=== PATIENT | male | born 1935 | race Caucasian/White ===

== ENCOUNTER 2020-01-27 16:14 | Emergency (ER) | payer BC, OTHER ==
[~2020-01-27] VITALS: Ht 172.7 cm; Wt 90.7 kg
[2020-01-27 16:29] VITALS: BP 126/66
[2020-01-27 18:36] LABS: Basophils # (auto) 0 10 ^3/uL (0-0.2); Basophils % (auto) 0.5 % (0.0-2.0); Eosinophils # (auto) 0.1 10 ^3/uL (0-0.8); Eosinophils % (auto) 1.4 % (0.0-7.0); Hematocrit 45.1 % (41.0-53.0); Hemoglobin 15.2 g/dL (13.5-17.5); Lymphocytes # (auto) 1.9 10 ^3/uL (0.4-5.4); Lymphocytes % (auto) 22.4 % (10.0-50.0); Mean Corpuscular Hemoglobin 29.5 pg (28.0-32.0); Mean Corpuscular Hgb Conc. 33.8 g/dL (32.0-36.0); Mean Corpuscular Volume 87.3 fL (80.0-100.0); Monocytes # (auto) 0.9 10 ^3/uL (0-1.3); Monocytes % (auto) 10.2 % (0.0-12.0); Neutrophils # (auto) 5.6 10 ^3/uL (1.6-8.6); Neutrophils % (auto) 65.5 % (37.0-80.0); Nucleated Red Blood Cells % 0.1 %; Platelet Count (auto) 235 10^3/uL (140-450); Red Blood Cells 5.17 10^6/uL (4.5-5.90); Red Cell Distribution Width 13.3 % (11.8-14.3); White Blood Cell 8.5 10^3/uL (4.4-10.8)
[2020-01-27 18:51] LABS: INR 1.04 (0.9-1.15); Partial Thromboplastin Time 24.9 sec (23.64-32.05)
[2020-01-27 18:54] LABS: Alanine Aminotransferase 32 U/L (16-61); Albumin 3.2 g/dL (3.4-5.0); Anion Gap 5 (5-15); Aspartate Aminotransferase 19 U/L (15-37); BUN/Creatinine Ratio 20.8; Blood Urea Nitrogen 22 mg/dL (7-18); Calcium 8.8 mg/dL (8.5-10.1); Carbon Dioxide 29 mmol/L (21-32); Chloride 104 mmol/L (98-107); GFR African American 85 mL/min; GFR Non-African American 70 mL/min; Glucose 92 mg/dL (74-106); Potassium 3.8 mmol/L (3.5-5.1); Sodium 138 mmol/L (136-145)
[2020-01-27 18:59] LABS: Alkaline Phosphatase 95 U/L (45-117); Bilirubin, Total 0.6 mg/dL (0.2-1.0); Total Protein 7.2 g/dL (6.4-8.2)
== END 2020-01-27 20:20 | disposition left against medical advice (07) ==
LOC: ER 16:14
DX: R07.89 Other chest pain (principal); Z53.21 Procedure and treatment not carried out due to patient leaving prior to being seen by health care provider
CPT/HCPCS: 36415; 80053; 83880; 84484; 85025; 85610; 85730; 93005

== ENCOUNTER 2020-03-23 10:52 | Inpatient (IN) | payer BC, OTHER ==
[~2020-03-23] VITALS: Ht 172.7 cm; Wt 97.0 kg
[2020-03-23 11:48] LABS: Basophils # (auto) 0 10 ^3/uL (0-0.2); Basophils % (auto) 0.2 % (0.0-2.0); Eosinophils # (auto) 0 10 ^3/uL (0-0.8); Hematocrit 44.7 % (41.0-53.0); Hemoglobin 14.9 g/dL (13.5-17.5); Lymphocytes # (auto) 0.6 10 ^3/uL (0.4-5.4); Lymphocytes % (auto) 3.7 % (10.0-50.0); Mean Corpuscular Hemoglobin 29.3 pg (28.0-32.0); Mean Corpuscular Hgb Conc. 33.4 g/dL (32.0-36.0); Mean Corpuscular Volume 87.7 fL (80.0-100.0); Monocytes # (auto) 0.8 10 ^3/uL (0-1.3); Monocytes % (auto) 5.1 % (0.0-12.0); Neutrophils # (auto) 14.6 10 ^3/uL (1.6-8.6); Nucleated Red Blood Cells % 0.1 %; Platelet Count (auto) 170 10^3/uL (140-450); Red Cell Distribution Width 14.2 % (11.8-14.3)
[2020-03-23 12:28] LABS: Albumin 2.9 g/dL (3.4-5.0); Anion Gap 8 (5-15); Blood Urea Nitrogen 23 mg/dL (7-18); Calcium 8.5 mg/dL (8.5-10.1); Carbon Dioxide 23 mmol/L (21-32); Chloride 102 mmol/L (98-107); Glucose 141 mg/dL (74-106); Potassium 3.7 mmol/L (3.5-5.1); Sodium 133 mmol/L (136-145)
[2020-03-23 12:35] LABS: Alanine Aminotransferase 31 U/L (16-61); Alkaline Phosphatase 77 U/L (45-117); Aspartate Aminotransferase 21 U/L (15-37); BUN/Creatinine Ratio 26.1; Bilirubin, Total 1.7 mg/dL (0.2-1.0); GFR African American 106 mL/min; GFR Non-African American 87 mL/min; Total Protein 7.2 g/dL (6.4-8.2)
[2020-03-23] MEDS ORDERED: SODIUM CHLORIDE 0.9% 1,000 ML IVB ONE (12:45)
[2020-03-23] MEDS ORDERED: ZINC SULFATE 220mg CAP or TAB PO ONE (12:45)
[2020-03-23] MEDS ORDERED: DOXYCYCLINE 100MG/250ML 250 ML IV ONE (12:45)
[2020-03-23] MEDS ORDERED: ASCORBIC ACID 500 MG TAB PO ONE (12:45)
[2020-03-23 13:47] LABS: INR 1.08 (0.9-1.15); Partial Thromboplastin Time 28.3 sec (23.0-31.2)
[2020-03-23 13:52] LABS: Lactic Acid w/Reflex 2.4 mmol/L (0.4-2.0)
[2020-03-23] MEDS ORDERED: PIPERACILLIN-TAZOB 3.375GM 100 ML IV ONE (16:45)
[2020-03-23] MEDS ORDERED: ACETAMINOPHEN 325 MG TAB PO ONE (18:45)
[2020-03-23] MEDS ORDERED: ALBUTEROL SULF HFA 90MCG INH 200DOSE IN SCH (22:00)
[2020-03-23] MEDS: methylPREDNISolone SOD SUCC 40 MG/ML VL IV SCH (22:26)
[2020-03-24 00:06] LABS: Urine Bacteria FEW /hpf (None Seen); Urine Blood Negative /uL (Negative); Urine Mucus FEW (None Seen); Urine Specific Gravity 1.019 (1.001-1.035); Urine WBC 50 /hpf (0 - 3)
[2020-03-24 02:15] VITALS: BP 125/68
--- NOTE | 2020-03-24 02:15 | NUR ---
Patient Brought to Unit Via Bed from ER w/ belongings Patient AOx4 w/ no complaints of pain. No s/s distress and no SOB. Patient bed locked in lowest position. Samuel present w/strawberry colored urine. Discussed POC with patient. Will continue to monitor.
[2020-03-24 02:24] VITALS: BP 125/68
--- NOTE | 2020-03-24 03:00 | NUR ---
Critical Lab Value Blood cultures show gram positive rods. Enid diaz. Addendum: 03/24/20 at 0305 by SABA PERDOMO RN RN Dr. Jarquin notified and called back. No new orders at this time.
--- NOTE | 2020-03-24 03:05 | NUR ---
Report given To Sampson RODRIGUES Patient AO4, no complaints of pain and no SOB.
[2020-03-24] MEDS ORDERED: METO-5 PO (03:25)
[2020-03-24] MEDS ORDERED: CLOP75TA28 PO (03:25)
[2020-03-24] MEDS ORDERED: FAMO20TA10 PO (03:25)
[2020-03-24] MEDS ORDERED: LOSA25TA38 PO (03:25)
[2020-03-24] MEDS ORDERED: ERGO1CAP23 PO (03:25)
[2020-03-24] MEDS ORDERED: AMLO10TA13 PO (03:25)
[2020-03-24] MEDS ORDERED: FINA5TAB4 PO (03:25)
[2020-03-24] MEDS ORDERED: FLUT0.05 NAS (03:25)
[2020-03-24] MEDS ORDERED: LEVO100T8 PO (03:25)
[2020-03-24] MEDS ORDERED: ASPI-543 PO (03:25)
[2020-03-24] MEDS ORDERED: ATOR20TA50 PO (03:25)
--- NOTE | 2020-03-24 07:20 | NUR ---
Opening Shift Note: Assumed care of patient, awake and alert. No S/S of distress/SOB or pain. Bed in lowest locked position, side rails up x 2, call light within reach. Patient instructed on POC and to call for assist PRN, will continue to monitor for changes Q1hr and PRN.
[2020-03-24 08:00] VITALS: BP 142/75
[2020-03-24] MEDS: methylPREDNISolone SOD SUCC 40 MG/ML VL IV SCH (09:54)
[2020-03-24] MEDS ORDERED: ACETAMINOPHEN 500 MG TAB PO PRN (11:00)
[2020-03-24] MEDS ORDERED: ONDANSETRON HCL 4 MG/2 ML VIAL IV PRN (11:00)
[2020-03-24 12:00] VITALS: BP 142/72
--- NOTE | 2020-03-24 15:00 | NUR ---
PT REPORTS THAT HE HAS ALREADY BEEN UP WITH NURSING. ATTEMPT P.T. TOMORROW.
--- NOTE | 2020-03-24 15:47 | NUR ---
PATIENT VOIDED AFTER WILSON WAS REMOVED.
--- NOTE | 2020-03-24 16:15 | NUR ---
URINE CULTURE COLLECTED AND SENT TO LAB.
--- NOTE | 2020-03-24 16:35 | NUR ---
PER MD ORDER, WILSON CATHETER REMOVED.
[2020-03-24 17:03] VITALS: BP 148/88
[2020-03-24] MEDS ORDERED: TAMSULOSIN HYDROCHLORIDE 0.4 MG CAP PO SCH (18:00)
--- NOTE | 2020-03-24 18:46 | NUR ---
CLOSING NOTE: Patient resting in bed. No S/S of distress at this time. Care endorsed.
[2020-03-24] MEDS: FAMOTIDINE 20 MG TAB PO SCH (21:27)
[2020-03-24] MEDS: CIPROFLOXACIN 400MG/200ML 200 ML IV SCH (21:27)
[2020-03-24 22:00] VITALS: BP 150/81
[2020-03-25 05:14] VITALS: BP 139/65
[2020-03-25 05:54] LABS: Basophils # (auto) 0 10 ^3/uL (0-0.2); Basophils % (auto) 0.1 % (0.0-2.0); Eosinophils # (auto) 0 10 ^3/uL (0-0.8); Hematocrit 44.5 % (41.0-53.0); Hemoglobin 15.2 g/dL (13.5-17.5); Lymphocytes # (auto) 1.2 10 ^3/uL (0.4-5.4); Lymphocytes % (auto) 9.4 % (10.0-50.0); Mean Corpuscular Hgb Conc. 34.1 g/dL (32.0-36.0); Monocytes % (auto) 7.9 % (0.0-12.0); Neutrophils # (auto) 10.3 10 ^3/uL (1.6-8.6); Neutrophils % (auto) 82.6 % (37.0-80.0); Nucleated Red Blood Cells % 0.1 %; Platelet Count (auto) 194 10^3/uL (140-450); Red Blood Cells 5.06 10^6/uL (4.5-5.90); Red Cell Distribution Width 14.1 % (11.8-14.3); White Blood Cell 12.5 10^3/uL (4.4-10.8)
[2020-03-25] MEDS ORDERED: LEVOTHYROXINE SODIUM 100 MCG TAB PO SCH (07:00)
--- NOTE | 2020-03-25 08:00 | NUR ---
Opening Shift Note Assumed care of patient, awake, alert lying supine watching television. No S/S of distress/SOB or pain. Bilateral lower lobes diminished upon auscultation, no edema present. Instructed on POC and to call for assist PRN. Patient verbalized understanding. Will continue to monitor for changes Q1hr and PRN.
[2020-03-25 09:00] VITALS: BP 161/79
--- NOTE | 2020-03-25 09:43 | NUR ---
PHYSICAL THERAPY PHYSICAL THERAPY IN TO SEE PATIENT. PATIENT AMBULATED THROUGHOUT UNIT WITH CANE. WILL CONTINUE TO MONITOR.
[2020-03-25] MEDS ORDERED: METOPROLOL TARTRATE 50 MG TAB PO SCH (10:00)
[2020-03-25] MEDS ORDERED: CLOPIDOGREL BISULFATE 75 MG TAB PO SCH (10:00)
[2020-03-25] MEDS ORDERED: ASPirin-EC 81 mg tab PO SCH (10:00)
[2020-03-25] MEDS ORDERED: ATORVASTATIN 20 MG TAB PO SCH (10:00)
[2020-03-25] MEDS ORDERED: LOSARTAN POTASSIUM 25 MG TAB PO SCH (10:00)
[2020-03-25] MEDS ORDERED: FINASTERIDE 5 MG TAB PO SCH (10:00)
[2020-03-25] MEDS: CIPROFLOXACIN 400MG/200ML 200 ML IV SCH (10:27)
[2020-03-25] MEDS: FAMOTIDINE 20 MG TAB PO SCH (10:30)
[2020-03-25 13:00] VITALS: BP 154/83
[2020-03-25] MEDS ORDERED: cefTRIAXone 1GM/50ML D5W 50 ML IV ONE (14:00)
[2020-03-25] MEDS ORDERED: CEPH-37 PO (14:18)
[2020-03-25] MEDS ORDERED: PROBCAP9 OR (14:18)
[2020-03-25 14:55] VITALS: BP 150/77
--- NOTE | 2020-03-25 17:25 | NUR ---
Discharge instructions given as ordered. Encourage to follow up with PMD as instructed. All questions and concerns addressed. Patient verbalized understanding. Medication reconciliation form completed and copy given to patient. IV removed with catheter intact, pressure dressing applied. Telemetry unit returned to ICU. Patient taken to vehicle via wheelchair with all personal belongings, accompanied by staff. No distress noted at time of departure.
--- NOTE | 2020-03-26 09:05 | NUR ---
Assessment Patient is an 84-year old male who is alert and oriented. Prior to admission patient lived with his Hayde and functioned independently. Per patient he can care for his own ADL's. Patient has a walker and cane for home use. Per patient he will return home to his prior living arrangements post discharge and family will transport him home. Advised patient there is a social service consult for home health safety evaluation. Informed patient he has a right to participate in all discharge planning. Patient verbalized understanding and agreed to discharge plan. Faxed clinical information to [facility] and [facility]. Per Laura with [facility] patient has been accepted and service to start within 24-48hrs upon d/c day. Addendum: 03/26/20 at 0906 by SHON CAVAZOS Amended: Links added.
== END 2020-03-25 17:25 | disposition home health service (06) | DRG 189 ==
LOC: ER 10:52 → EDBD 10:52 → TELE 10:53 → TELE-WESTW 23:52
PROVIDERS: ADMIT Emergency Medicine; ATTEND Hospitalist
DX: J96.01 Acute respiratory failure with hypoxia (principal); N39.0 Urinary tract infection, site not specified; N40.0 Benign prostatic hyperplasia without lower urinary tract symptoms; E78.5 Hyperlipidemia, unspecified; I25.10 Atherosclerotic heart disease of native coronary artery without angina pectoris; Z20.828 Contact with and (suspected) exposure to other viral communicable diseases; Z87.440 Personal history of urinary (tract) infections; Z82.49 Family history of ischemic heart disease and other diseases of the circulatory system; Z83.3 Family history of diabetes mellitus; Z79.899 Other long term (current) drug therapy; I10 Essential (primary) hypertension
CPT/HCPCS: 36415; 71045; 80053; 81001; 83605; 83735; 83880; 84484; 85025; 85610; 85730; 87040; 87077; 87086; 87088; 87186; 87426; 87449; 93005; 97163; G0378; J0696; J2543; J3490

== ENCOUNTER 2021-01-13 18:45 | Emergency (ER) | payer BC, OTHER ==
[~2021-01-13] VITALS: Ht 172.7 cm; Wt 97.5 kg
[~2021-01-13 18:45] MED LIST: AMLO-496 PO; ASPI-543 PO; ATOR20TA50 PO; CEPH-37 PO; CLOP75TA28 PO; ERGO1CAP23 PO; FAMO20TA10 PO; FINA5TAB4 PO; FLUT0.05 NAS; LEVO100T8 PO; LOSA25TA38 PO; METO1TAB77 PO; PROBCAP9 OR
[2021-01-13 20:44] LABS: Basophils # (auto) 0 10 ^3/uL (0-0.2); Basophils % (auto) 0.5 % (0.0-2.0); Eosinophils # (auto) 0.2 10 ^3/uL (0-0.8); Eosinophils % (auto) 3.7 % (0.0-7.0); Hemoglobin 14.9 g/dL (13.5-17.5); Lymphocytes # (auto) 1.9 10 ^3/uL (0.4-5.4); Lymphocytes % (auto) 31.3 % (10.0-50.0); Mean Corpuscular Hemoglobin 30.7 pg (28.0-32.0); Mean Corpuscular Hgb Conc. 35.5 g/dL (32.0-36.0); Mean Corpuscular Volume 86.4 fL (80.0-100.0); Monocytes # (auto) 0.6 10 ^3/uL (0-1.3); Monocytes % (auto) 9.6 % (0.0-12.0); Neutrophils # (auto) 3.3 10 ^3/uL (1.6-8.6); Neutrophils % (auto) 54.9 % (37.0-80.0); Nucleated Red Blood Cells % 0.1 %; Platelet Count (auto) 205 10^3/uL (140-450); Red Blood Cells 4.86 10^6/uL (4.5-5.90); Red Cell Distribution Width 13.9 % (11.8-14.3); White Blood Cell 5.9 10^3/uL (4.4-10.8)
[2021-01-13 21:00] LABS: Albumin 3.3 g/dL (3.4-5.0); Anion Gap 6 (5-15); Blood Urea Nitrogen 12 mg/dL (7-18); Calcium 8.2 mg/dL (8.5-10.1); Carbon Dioxide 27 mmol/L (21-32); Chloride 105 mmol/L (98-107); Glucose 102 mg/dL (74-106); Potassium 3.8 mmol/L (3.5-5.1); Sodium 138 mmol/L (136-145)
[2021-01-13 21:08] LABS: Alanine Aminotransferase 40 U/L (16-61); Alkaline Phosphatase 104 U/L (45-117); Aspartate Aminotransferase 23 U/L (15-37); BUN/Creatinine Ratio 14.6; Bilirubin, Total 0.4 mg/dL (0.2-1.0); GFR African American 114 mL/min; GFR Non-African American 94 mL/min
[2021-01-13 21:50] VITALS: BP 153/75
== END 2021-01-13 22:00 | disposition home or self-care (01) ==
LOC: EDBD 18:45 → ER 18:46
DX: I10 Essential (primary) hypertension (principal); E78.5 Hyperlipidemia, unspecified; I25.2 Old myocardial infarction
CPT/HCPCS: 36415; 71045; 80053; 84484; 85025; 85049; 93005

== ENCOUNTER 2021-04-09 20:21 | Emergency (ER) | payer BC, OTHER ==
[~2021-04-09] VITALS: Ht 182.9 cm; Wt 97.5 kg
[2021-04-09 21:06] LABS: Basophils # (auto) 0 10 ^3/uL (0-0.2); Basophils % (auto) 0.4 % (0.0-2.0); Eosinophils # (auto) 0.2 10 ^3/uL (0-0.8); Eosinophils % (auto) 2.7 % (0.0-7.0); Hematocrit 42.7 % (41.0-53.0); Hemoglobin 14.6 g/dL (13.5-17.5); Lymphocytes # (auto) 2.1 10 ^3/uL (0.4-5.4); Lymphocytes % (auto) 32.3 % (10.0-50.0); Mean Corpuscular Hemoglobin 29.9 pg (28.0-32.0); Mean Corpuscular Hgb Conc. 34.1 g/dL (32.0-36.0); Mean Corpuscular Volume 87.5 fL (80.0-100.0); Monocytes # (auto) 0.7 10 ^3/uL (0-1.3); Monocytes % (auto) 11.1 % (0.0-12.0); Neutrophils # (auto) 3.4 10 ^3/uL (1.6-8.6); Neutrophils % (auto) 53.5 % (37.0-80.0); Nucleated Red Blood Cells % 0.1 %; Red Blood Cells 4.88 10^6/uL (4.5-5.90); Red Cell Distribution Width 13.6 % (11.8-14.3); White Blood Cell 6.4 10^3/uL (4.4-10.8)
[2021-04-09 21:38] LABS: Alanine Aminotransferase 42 U/L (16-61); Albumin 3.1 g/dL (3.4-5.0); Anion Gap 8 (5-15); Aspartate Aminotransferase 17 U/L (15-37); BUN/Creatinine Ratio 16.3; Blood Urea Nitrogen 13 mg/dL (7-18); Calcium 8.3 mg/dL (8.5-10.1); Carbon Dioxide 25 mmol/L (21-32); Chloride 106 mmol/L (98-107); GFR African American 118 mL/min; GFR Non-African American 97 mL/min; Glucose 115 mg/dL (74-106); Potassium 3.7 mmol/L (3.5-5.1); Sodium 139 mmol/L (136-145)
[2021-04-09 21:43] LABS: Alkaline Phosphatase 107 U/L (45-117); Bilirubin, Total 0.4 mg/dL (0.2-1.0); Total Protein 6.9 g/dL (6.4-8.2)
[2021-04-10 00:38] LABS: Urine Bacteria NONE SEEN /hpf (None Seen); Urine Blood Negative /uL (Negative); Urine WBC <1 /hpf (0 - 3)
[2021-04-10 02:52] VITALS: BP 170/90
== END 2021-04-10 03:14 | disposition home or self-care (01) ==
LOC: EDBD 20:21 → ER 20:25
DX: R42 Dizziness and giddiness (principal); I10 Essential (primary) hypertension; I25.2 Old myocardial infarction; E78.5 Hyperlipidemia, unspecified; Z86.73 Personal history of transient ischemic attack (TIA), and cerebral infarction without residual deficits; Z90.49 Acquired absence of other specified parts of digestive tract; Z98.61 Coronary angioplasty status; Z79.899 Other long term (current) drug therapy
CPT/HCPCS: 36415; 70450; 71045; 80053; 81001; 83880; 84484; 85025; 93005

== ENCOUNTER 2021-08-11 06:03 | Inpatient (IN) | payer BC, OTHER ==
[~2021-08-11] VITALS: Ht 165.1 cm; Wt 112.9 kg
[2021-08-11 07:17] LABS: Basophils # (auto) 0 10 ^3/uL (0-0.2); Basophils % (auto) 0.4 % (0.0-2.0); Eosinophils # (auto) 0.1 10 ^3/uL (0-0.8); Eosinophils % (auto) 1.8 % (0.0-7.0); Hematocrit 42.6 % (41.0-53.0); Hemoglobin 14.7 g/dL (13.5-17.5); Lymphocytes # (auto) 1.3 10 ^3/uL (0.4-5.4); Lymphocytes % (auto) 21.3 % (10.0-50.0); Mean Corpuscular Hgb Conc. 34.4 g/dL (32.0-36.0); Monocytes # (auto) 0.5 10 ^3/uL (0-1.3); Monocytes % (auto) 8.4 % (0.0-12.0); Neutrophils # (auto) 4.2 10 ^3/uL (1.6-8.6); Neutrophils % (auto) 68.1 % (37.0-80.0); Red Cell Distribution Width 13.8 % (11.8-14.3); White Blood Cell 6.2 10^3/uL (4.4-10.8)
[2021-08-11] MEDS ORDERED: ONDANSETRON HCL 4 MG/2 ML VIAL IV ONE (07:30)
[2021-08-11] MEDS ORDERED: MORPHINE SULFATE 4 MG/ML SYR/VIAL IV ONE (07:30)
[2021-08-11 08:05] LABS: Potassium 4.1 mmol/L (3.5-5.1)
[2021-08-11 08:16] LABS: Albumin 3.4 g/dL (3.4-5.0); BUN/Creatinine Ratio 19.3; Bilirubin, Total 0.5 mg/dL (0.2-1.0); Calcium 8.4 mg/dL (8.5-10.1); Total Protein 7.2 g/dL (6.4-8.2)
[2021-08-11] MEDS ORDERED: SODIUM CHLORIDE 0.9% 1,000 ML IV ONE (09:15)
[2021-08-11] MEDS ORDERED: HYDROmorphone HCL 2 MG/ML VL IV ONE (09:15)
[2021-08-11] MEDS ORDERED: IOHEXOL 350 MG/ML 100ML IJ ONE (09:44)
[2021-08-11] MEDS ORDERED: NITROGLYCERIN 0.4 MG SL TAB SL PRN (10:45)
[2021-08-11] MEDS ORDERED: MORPHINE SULFATE INJECTION 2 MG/ML SYRG IV PRN (10:45)
[2021-08-11 12:38] VITALS: BP 137/77
[2021-08-11 13:00] VITALS: BP 137/77
[2021-08-11 18:00] VITALS: BP 149/72
[2021-08-11] MEDS: RANOLAZINE ER 500 MG TAB PO SCH (21:15)
[2021-08-11] MEDS: FAMOTIDINE 20 MG TAB PO SCH (21:15)
[2021-08-11] MEDS ORDERED: ATORVASTATIN 20 MG TAB PO SCH (22:00)
[2021-08-12] MEDS ORDERED: LEVOTHYROXINE SODIUM 100 MCG TAB PO SCH (07:00)
[2021-08-12 09:00] VITALS: BP 159/91
[2021-08-12] MEDS: FAMOTIDINE 20 MG TAB PO SCH (09:14)
[2021-08-12] MEDS: RANOLAZINE ER 500 MG TAB PO SCH (09:15)
[2021-08-12] MEDS ORDERED: ASPirin-EC 81 mg tab PO SCH (10:00)
[2021-08-12] MEDS ORDERED: LOSARTAN POTASSIUM 25 MG TAB PO SCH (10:00)
[2021-08-12] MEDS ORDERED: METOPROLOL TARTRATE 50 MG TAB PO SCH (10:00)
[2021-08-12] MEDS ORDERED: CLOPIDOGREL BISULFATE 75 MG TAB PO SCH (10:00)
[2021-08-12] MEDS ORDERED: FINASTERIDE 5 MG TAB PO SCH (10:00)
[2021-08-12 13:00] VITALS: BP 154/80
[2021-08-12] MEDS ORDERED: RANO500T PO (14:46)
[2021-08-12 15:11] VITALS: BP 154/80
== END 2021-08-12 17:34 | disposition home or self-care (01) | DRG 303 ==
LOC: ER 06:03 → EDBD 06:03 → TELE 10:35 → TELE-WESTW 12:03
PROVIDERS: ADMIT Hospitalist; ATTEND Hospitalist
DX: I25.10 Atherosclerotic heart disease of native coronary artery without angina pectoris (principal); Z68.41 Body mass index [BMI] 40.0-44.9, adult; I11.9 Hypertensive heart disease without heart failure; Z77.090 Contact with and (suspected) exposure to asbestos; E66.9 Obesity, unspecified; E78.5 Hyperlipidemia, unspecified; Z20.822 Contact with and (suspected) exposure to COVID-19; Z79.899 Other long term (current) drug therapy; Z83.3 Family history of diabetes mellitus; Z82.49 Family history of ischemic heart disease and other diseases of the circulatory system; Z90.49 Acquired absence of other specified parts of digestive tract; Z95.5 Presence of coronary angioplasty implant and graft
CPT/HCPCS: 36415; 71045; 71275; 80053; 83880; 84484; 85025; 87426; 93005; 93306; 96361; 96374; 96375; G0378; J2405

== ENCOUNTER 2022-04-18 08:48 | Emergency (ER) | payer BC, OTHER ==
[~2022-04-18] VITALS: Ht 172.7 cm; Wt 105.2 kg
[~2022-04-18 08:48] MED LIST changes: -AMLO-496 PO; -CEPH-37 PO; +RANO500T PO
[2022-04-18 09:41] LABS: Albumin 3.6 g/dL (3.4-5.0); Calcium 9.1 mg/dL (8.5-10.1); Potassium 4.7 mmol/L (3.5-5.1)
[2022-04-18 09:44] LABS: Basophils # (auto) 0.1 10 ^3/uL (0-0.2); Basophils % (auto) 0.6 % (0.0-2.0); Eosinophils # (auto) 0.5 10 ^3/uL (0-0.8); Eosinophils % (auto) 4.7 % (0.0-7.0); Hemoglobin 14.8 g/dL (13.5-17.5); Lymphocytes # (auto) 1.9 10 ^3/uL (0.4-5.4); Lymphocytes % (auto) 19.3 % (10.0-50.0); Mean Corpuscular Hemoglobin 30.1 pg (28.0-32.0); Mean Corpuscular Hgb Conc. 34.4 g/dL (32.0-36.0); Mean Corpuscular Volume 87.4 fL (80.0-100.0); Neutrophils # (auto) 6.4 10 ^3/uL (1.6-8.6); Neutrophils % (auto) 65.4 % (37.0-80.0); Nucleated Red Blood Cells % 0.1 %; Red Blood Cells 4.91 10^6/uL (4.5-5.90); Red Cell Distribution Width 13.8 % (11.8-14.3); White Blood Cell 9.7 10^3/uL (4.4-10.8)
[2022-04-18 09:45] LABS: BUN/Creatinine Ratio 23.5; Bilirubin, Total 0.6 mg/dL (0.2-1.0); Total Protein 7.4 g/dL (6.4-8.2)
[2022-04-18 09:51] VITALS: BP 133/69
[2022-04-18 09:54] LABS: Urine Bacteria NONE SEEN /hpf (None Seen); Urine Blood Negative /uL (Negative); Urine Specific Gravity 1.005 (1.001-1.035); Urine WBC 1 /hpf (0 - 3)
[2022-04-18] MEDS ORDERED: TAM04C PO (11:50)
== END 2022-04-18 11:49 | disposition home or self-care (01) ==
LOC: ER 08:48
DX: N40.1 Benign prostatic hyperplasia with lower urinary tract symptoms (principal); R33.8 Other retention of urine; I10 Essential (primary) hypertension; I25.2 Old myocardial infarction; Z86.73 Personal history of transient ischemic attack (TIA), and cerebral infarction without residual deficits; Z90.49 Acquired absence of other specified parts of digestive tract; Z98.61 Coronary angioplasty status
CPT/HCPCS: 36415; 51702; 80053; 81001; 85025; 93005

== ENCOUNTER 2022-04-18 16:14 | Emergency (ER) | payer BC ==
[~2022-04-18] VITALS: Ht 172.7 cm; Wt 105.8 kg
[~2022-04-18 16:14] MED LIST changes: +TAM04C PO
[2022-04-18 18:44] LABS: Basophils # (auto) 0.1 10 ^3/uL (0-0.2); Basophils % (auto) 0.5 % (0.0-2.0); Eosinophils # (auto) 0.4 10 ^3/uL (0-0.8); Hematocrit 43.4 % (41.0-53.0); Hemoglobin 14.6 g/dL (13.5-17.5); Lymphocytes # (auto) 1.7 10 ^3/uL (0.4-5.4); Mean Corpuscular Hemoglobin 29.2 pg (28.0-32.0); Mean Corpuscular Hgb Conc. 33.6 g/dL (32.0-36.0); Mean Corpuscular Volume 86.8 fL (80.0-100.0); Monocytes # (auto) 1.1 10 ^3/uL (0-1.3); Monocytes % (auto) 9.3 % (0.0-12.0); Neutrophils # (auto) 8.7 10 ^3/uL (1.6-8.6); Neutrophils % (auto) 73.2 % (37.0-80.0); Nucleated Red Blood Cells % 0.1 %; Red Cell Distribution Width 13.7 % (11.8-14.3); White Blood Cell 11.9 10^3/uL (4.4-10.8)
[2022-04-18 19:01] LABS: Albumin 3.6 g/dL (3.4-5.0); Calcium 9.1 mg/dL (8.5-10.1); Potassium 4.4 mmol/L (3.5-5.1)
[2022-04-18 19:10] LABS: Bilirubin, Total 0.6 mg/dL (0.2-1.0); Total Protein 7.2 g/dL (6.4-8.2)
[2022-04-18 20:40] VITALS: BP 152/76
== END 2022-04-18 20:45 | disposition home or self-care (01) ==
LOC: ER 16:14
DX: R31.9 Hematuria, unspecified (principal); N40.0 Benign prostatic hyperplasia without lower urinary tract symptoms; E78.5 Hyperlipidemia, unspecified; I10 Essential (primary) hypertension; I25.2 Old myocardial infarction; Z90.49 Acquired absence of other specified parts of digestive tract; Z46.6 Encounter for fitting and adjustment of urinary device
CPT/HCPCS: 36415; 80053; 85025

== ENCOUNTER 2022-05-01 09:44 | Emergency (ER) | payer BC ==
[~2022-05-01] VITALS: Ht 175.3 cm; Wt 100.0 kg
[2022-05-01 10:17] LABS: Basophils # (auto) 0.1 10 ^3/uL (0-0.2); Basophils % (auto) 0.6 % (0.0-2.0); Eosinophils # (auto) 0.6 10 ^3/uL (0-0.8); Eosinophils % (auto) 6.4 % (0.0-7.0); Hemoglobin 13.8 g/dL (13.5-17.5); Lymphocytes # (auto) 1.6 10 ^3/uL (0.4-5.4); Lymphocytes % (auto) 17.1 % (10.0-50.0); Mean Corpuscular Hemoglobin 29.3 pg (28.0-32.0); Mean Corpuscular Hgb Conc. 33.7 g/dL (32.0-36.0); Monocytes # (auto) 0.9 10 ^3/uL (0-1.3); Monocytes % (auto) 9.9 % (0.0-12.0); Neutrophils # (auto) 6.1 10 ^3/uL (1.6-8.6); Red Blood Cells 4.71 10^6/uL (4.5-5.90); Red Cell Distribution Width 13.9 % (11.8-14.3); White Blood Cell 9.3 10^3/uL (4.4-10.8)
[2022-05-01 10:35] LABS: INR 1.03 (0.9-1.15); Partial Thromboplastin Time 28.8 sec (24.6-33.4)
[2022-05-01 10:41] LABS: Albumin 3.1 g/dL (3.4-5.0); Calcium 8.7 mg/dL (8.5-10.1); Potassium 4.4 mmol/L (3.5-5.1)
[2022-05-01 10:44] LABS: BUN/Creatinine Ratio 23.6; Bilirubin, Total 0.7 mg/dL (0.2-1.0)
[2022-05-01] MEDS ORDERED: AZITHROMYCIN 500MG/ 250ML 250 ML IV ONE (12:00)
[2022-05-01] MEDS ORDERED: cefTRIAXone 1GM/50ML D5W 50 ML IV ONE (12:00)
[2022-05-01 13:20] VITALS: BP 127/69
== END 2022-05-01 17:41 | disposition left against medical advice (07) ==
LOC: EDBD 09:44 → ER 09:44
DX: J18.9 Pneumonia, unspecified organism (principal); R06.03 Acute respiratory distress; Z20.822 Contact with and (suspected) exposure to COVID-19; R06.02 Shortness of breath
CPT/HCPCS: 36415; 71045; 80053; 83605; 83880; 84484; 85025; 85379; 85610; 85730; 87040; 87426; 93005; 96365; 96366; 96368; 99285; J0456; J0696

== ENCOUNTER 2022-05-03 06:52 | Inpatient (IN) | payer BC ==
[~2022-05-03] VITALS: Ht 175.3 cm; Wt 98.5 kg
[2022-05-03 07:43] LABS: Basophils # (auto) 0.1 10 ^3/uL (0-0.2); Basophils % (auto) 0.9 % (0.0-2.0); Eosinophils # (auto) 0.7 10 ^3/uL (0-0.8); Eosinophils % (auto) 6.7 % (0.0-7.0); Hematocrit 38.8 % (41.0-53.0); Hemoglobin 13.5 g/dL (13.5-17.5); Lymphocytes # (auto) 0.7 10 ^3/uL (0.4-5.4); Lymphocytes % (auto) 7.2 % (10.0-50.0); Mean Corpuscular Hemoglobin 29.5 pg (28.0-32.0); Mean Corpuscular Hgb Conc. 34.7 g/dL (32.0-36.0); Mean Corpuscular Volume 84.9 fL (80.0-100.0); Monocytes # (auto) 0.8 10 ^3/uL (0-1.3); Monocytes % (auto) 8.5 % (0.0-12.0); Neutrophils # (auto) 7.7 10 ^3/uL (1.6-8.6); Neutrophils % (auto) 76.7 % (37.0-80.0); Red Blood Cells 4.58 10^6/uL (4.5-5.90); Red Cell Distribution Width 13.8 % (11.8-14.3)
[2022-05-03 08:02] LABS: BUN/Creatinine Ratio 16.1; Calcium 8.5 mg/dL (8.5-10.1); Potassium 4.4 mmol/L (3.5-5.1)
[2022-05-03 08:05] LABS: Bilirubin, Total 0.8 mg/dL (0.2-1.0); Total Protein 6.7 g/dL (6.4-8.2)
[2022-05-03 11:10] LABS: Urine Bacteria NONE SEEN /hpf (None Seen); Urine Blood Negative /uL (Negative); Urine Mucus FEW (None Seen); Urine Specific Gravity 1.025 (1.001-1.035); Urine WBC 74 /hpf (0 - 3)
[2022-05-03] MEDS ORDERED: cefTRIAXone 1GM/50ML D5W 50 ML IV ONE (13:00)
[2022-05-03] MEDS ORDERED: AZITHROMYCIN 500MG/ 250ML 250 ML IV ONE (13:00)
[2022-05-03] MEDS ORDERED: ACETAMINOPHEN 325 MG TAB PO PRN (17:30)
[2022-05-03] MEDS ORDERED: ONDANSETRON HCL 4 MG/2 ML VIAL IV PRN (17:30)
[2022-05-03 19:38] VITALS: BP 145/66
[2022-05-03 19:40] VITALS: BP 145/66
[2022-05-03] MEDS: ALBUTEROL SULF 2.5 MG/0.5ML(0.5%) NEB SOLN NEB SCH (19:40)
[2022-05-03] MEDS: IPRATROPIUM BROM 0.5 MG/2.5ML INH SOL NEB SCH (19:40)
[2022-05-04] MEDS: METOPROLOL TARTRATE 25 MG TAB PO SCH ×3 (00:43→21:43)
[2022-05-04 03:56] VITALS: BP 150/70
[2022-05-04] MEDS ORDERED: AMLO-489 PO (04:33)
[2022-05-04 05:00] VITALS: BP 150/70
[2022-05-04] MEDS: IPRATROPIUM BROM 0.5 MG/2.5ML INH SOL NEB SCH ×3 (08:35→19:39)
[2022-05-04] MEDS: ALBUTEROL SULF 2.5 MG/0.5ML(0.5%) NEB SOLN NEB SCH ×3 (08:35→19:40)
[2022-05-04 09:00] VITALS: BP 139/71
[2022-05-04] MEDS: levoFLOXacin 500MG 100 ML IV SCH (10:00)
[2022-05-04] MEDS ORDERED: IOHEXOL 350 MG/ML 100ML IJ ONE (10:03)
[2022-05-04] MEDS ORDERED: guaiFENesin-DM 100/10mg/5ml SYR PO PRN (13:00)
[2022-05-04] MEDS: CLOPIDOGREL BISULFATE 75 MG TAB PO SCH (14:52)
[2022-05-04] MEDS: ASPirin 81 mg TAB PO SCH (14:52)
[2022-05-04 14:56] VITALS: BP 141/78
[2022-05-04] MEDS: amLODIPine BESYLATE 5 MG TAB PO SCH (16:30)
[2022-05-04 17:00] VITALS: BP 127/78
[2022-05-04 21:30] VITALS: BP 124/63
[2022-05-04] MEDS: FAMOTIDINE 20 MG TAB PO SCH (21:43)
[2022-05-04] MEDS: ATORVASTATIN 20 MG TAB PO SCH (21:43)
[2022-05-05 04:52] VITALS: BP 144/75
[2022-05-05] MEDS: IPRATROPIUM BROM 0.5 MG/2.5ML INH SOL NEB SCH ×3 (05:41→19:13)
[2022-05-05] MEDS: ALBUTEROL SULF 2.5 MG/0.5ML(0.5%) NEB SOLN NEB SCH ×3 (05:41→19:13)
[2022-05-05] MEDS: LEVOTHYROXINE SODIUM 100 MCG TAB PO SCH (06:04)
[2022-05-05 08:00] VITALS: BP 166/91
[2022-05-05] MEDS: CLOPIDOGREL BISULFATE 75 MG TAB PO SCH (08:33)
[2022-05-05] MEDS: ASPirin 81 mg TAB PO SCH (08:33)
[2022-05-05] MEDS: METOPROLOL TARTRATE 25 MG TAB PO SCH ×2 (08:34→21:37)
[2022-05-05] MEDS: amLODIPine BESYLATE 5 MG TAB PO SCH (08:34)
[2022-05-05] MEDS: FAMOTIDINE 20 MG TAB PO SCH ×2 (08:34→21:37)
[2022-05-05] MEDS: levoFLOXacin 500MG 100 ML IV SCH (10:07)
[2022-05-05] MEDS ORDERED: FUROSEMIDE 20 MG/2 ML VIAL IV ONE (11:30)
[2022-05-05 12:00] VITALS: BP 148/81
[2022-05-05 16:00] VITALS: BP 143/84
[2022-05-05] MEDS: ATORVASTATIN 20 MG TAB PO SCH (21:37)
[2022-05-05 22:00] VITALS: BP_SYST 127; BP_SYST 153; BP_DIAS 74; BP_DIAS 86
[2022-05-06 05:00] VITALS: BP 124/57
[2022-05-06] MEDS: LEVOTHYROXINE SODIUM 100 MCG TAB PO SCH (06:08)
[2022-05-06] MEDS: ALBUTEROL SULF 2.5 MG/0.5ML(0.5%) NEB SOLN NEB SCH ×2 (07:18→13:48)
[2022-05-06] MEDS: IPRATROPIUM BROM 0.5 MG/2.5ML INH SOL NEB SCH ×2 (07:18→13:48)
[2022-05-06 08:30] VITALS: BP 148/80
[2022-05-06] MEDS: CLOPIDOGREL BISULFATE 75 MG TAB PO SCH (09:48)
[2022-05-06] MEDS: FAMOTIDINE 20 MG TAB PO SCH (09:48)
[2022-05-06] MEDS: METOPROLOL TARTRATE 25 MG TAB PO SCH (09:49)
[2022-05-06] MEDS: amLODIPine BESYLATE 5 MG TAB PO SCH (09:50)
[2022-05-06] MEDS: ASPirin 81 mg TAB PO SCH (09:50)
[2022-05-06] MEDS: levoFLOXacin 500MG 100 ML IV SCH (09:50)
[2022-05-06 12:35] VITALS: BP 124/74
[2022-05-06] MEDS ORDERED: ALBUAER3 IN (12:44)
[2022-05-06] MEDS ORDERED: LEVO500T31 PO (12:44)
[2022-05-06 16:25] VITALS: BP 131/74
[2022-05-06 16:28] VITALS: BP 124/74
[2022-05-06 16:48] VITALS: BP 124/74
== END 2022-05-06 18:40 | disposition home health service (06) | DRG 193 ==
LOC: ER 06:52 → EDBD 06:52 → TELE 17:27 → TELE-EAST 05-04 03:00
PROVIDERS: ADMIT Internal Medicine; ATTEND Internal Medicine
DX: J18.9 Pneumonia, unspecified organism (principal); J96.01 Acute respiratory failure with hypoxia; N39.0 Urinary tract infection, site not specified; E44.0 Moderate protein-calorie malnutrition; J98.11 Atelectasis; Z68.32 Body mass index [BMI] 32.0-32.9, adult; Z20.822 Contact with and (suspected) exposure to COVID-19; I25.118 Atherosclerotic heart disease of native coronary artery with other forms of angina pectoris; E03.9 Hypothyroidism, unspecified; E66.9 Obesity, unspecified; I10 Essential (primary) hypertension; E78.5 Hyperlipidemia, unspecified; N40.0 Benign prostatic hyperplasia without lower urinary tract symptoms; K21.9 Gastro-esophageal reflux disease without esophagitis; Z83.3 Family history of diabetes mellitus; Z90.49 Acquired absence of other specified parts of digestive tract
CPT/HCPCS: 36415; 71045; 71275; 74176; 80053; 81001; 84484; 85025; 87040; 87426; 93005; 93970; 94640; 96365; 96368; G0378; J0696; J1956

== ENCOUNTER 2022-05-29 10:38 | Inpatient (IN) | payer BC, OTHER ==
[~2022-05-29] VITALS: Ht 172.7 cm; Wt 101.5 kg
[~2022-05-29 10:38] MED LIST changes: +ALBUAER3 IN; +AMLO-489 PO; -FINA5TAB4 PO; +LEVO500T31 PO; -RANO500T PO; -TAM04C PO
[2022-05-29] MEDS ORDERED: FUROSEMIDE 40 MG/4 ML VIAL IV ONE (11:30)
[2022-05-29 12:14] LABS: Basophils # (auto) 0 10 ^3/uL (0-0.2); Basophils % (auto) 0.5 % (0.0-2.0); Eosinophils # (auto) 0.5 10 ^3/uL (0-0.8); Eosinophils % (auto) 6.4 % (0.0-7.0); Hematocrit 41.7 % (41.0-53.0); Lymphocytes # (auto) 1.7 10 ^3/uL (0.4-5.4); Lymphocytes % (auto) 23.1 % (10.0-50.0); Mean Corpuscular Hemoglobin 29.3 pg (28.0-32.0); Mean Corpuscular Hgb Conc. 33.5 g/dL (32.0-36.0); Mean Corpuscular Volume 87.3 fL (80.0-100.0); Monocytes # (auto) 0.7 10 ^3/uL (0-1.3); Monocytes % (auto) 9.2 % (0.0-12.0); Neutrophils # (auto) 4.6 10 ^3/uL (1.6-8.6); Neutrophils % (auto) 60.8 % (37.0-80.0); Nucleated Red Blood Cells % 0.1 %; Red Blood Cells 4.78 10^6/uL (4.5-5.90); Red Cell Distribution Width 14.1 % (11.8-14.3); White Blood Cell 7.5 10^3/uL (4.4-10.8)
[2022-05-29 12:37] LABS: Albumin 3.3 g/dL (3.4-5.0); BUN/Creatinine Ratio 19.5; Magnesium 2.3 mg/dL (1.6-2.6); Potassium 4.6 mmol/L (3.5-5.1)
[2022-05-29 12:40] LABS: Bilirubin, Total 0.6 mg/dL (0.2-1.0); Total Protein 6.8 g/dL (6.4-8.2)
[2022-05-29] MEDS ORDERED: IOHEXOL 350 MG/ML 100ML IJ ONE (16:19)
[2022-05-29] MEDS: IPRATROPIUM BROM 0.5 MG/2.5ML INH SOL NEB SCH ×3 (18:00→22:37)
[2022-05-29] MEDS: ALBUTEROL SULF 2.5 MG/0.5ML(0.5%) NEB SOLN NEB SCH ×3 (18:50→22:37)
[2022-05-29 22:35] VITALS: BP 133/71
[2022-05-29] MEDS: ATORVASTATIN 20 MG TAB PO SCH (23:00)
[2022-05-29] MEDS: amLODIPine BESYLATE 5 MG TAB PO SCH (23:00)
[2022-05-29] MEDS: METOPROLOL TARTRATE 50 MG TAB PO SCH (23:01)
[2022-05-29] MEDS: DOXYCYCLINE 100MG/250ML 250 ML IV SCH (23:13)
[2022-05-29 23:56] VITALS: BP 129/69
[2022-05-30 01:51] VITALS: BP 129/69
[2022-05-30 04:52] VITALS: BP 104/62
[2022-05-30] MEDS: DOXYCYCLINE 100MG/250ML 250 ML IV SCH ×2 (05:44→18:49)
[2022-05-30] MEDS: IPRATROPIUM BROM 0.5 MG/2.5ML INH SOL NEB SCH ×5 (06:00→22:08)
[2022-05-30] MEDS: ALBUTEROL SULF 2.5 MG/0.5ML(0.5%) NEB SOLN NEB SCH ×5 (06:00→22:08)
[2022-05-30] MEDS: LEVOTHYROXINE SODIUM 100 MCG TAB PO SCH (06:15)
[2022-05-30 08:50] VITALS: BP 126/72
[2022-05-30] MEDS: METOPROLOL TARTRATE 50 MG TAB PO SCH ×2 (10:32→21:39)
[2022-05-30] MEDS: CLOPIDOGREL BISULFATE 75 MG TAB PO SCH (10:32)
[2022-05-30] MEDS: ASPirin 81 mg TAB PO SCH (10:32)
[2022-05-30] MEDS: amLODIPine BESYLATE 5 MG TAB PO SCH ×2 (10:33→21:39)
[2022-05-30] MEDS ORDERED: DOXY-332 PO (12:48)
[2022-05-30] MEDS ORDERED: IPR002IS NEB (12:48)
[2022-05-30] MEDS ORDERED: ALBU0.084 NEB (12:48)
[2022-05-30 13:00] VITALS: BP 129/64
[2022-05-30 17:00] VITALS: BP 144/71
[2022-05-30] MEDS: cefTRIAXone 1GM/50ML D5W 50 ML IV SCH (21:11)
[2022-05-30] MEDS: ATORVASTATIN 20 MG TAB PO SCH (21:31)
[2022-05-30] MEDS: methylPREDNISolone SOD SUCC 40 MG/ML VL IV SCH (21:31)
[2022-05-30 22:00] VITALS: BP 122/52
[2022-05-30] MEDS ORDERED: PRED20TA2 PO (23:41)
[2022-05-31 05:00] VITALS: BP 135/73
[2022-05-31] MEDS: LEVOTHYROXINE SODIUM 100 MCG TAB PO SCH (06:18)
[2022-05-31] MEDS: methylPREDNISolone SOD SUCC 40 MG/ML VL IV SCH ×2 (06:18→14:50)
[2022-05-31] MEDS: DOXYCYCLINE 100MG/250ML 250 ML IV SCH (06:19)
[2022-05-31] MEDS: ALBUTEROL SULF 2.5 MG/0.5ML(0.5%) NEB SOLN NEB SCH ×3 (06:23→13:45)
[2022-05-31] MEDS: IPRATROPIUM BROM 0.5 MG/2.5ML INH SOL NEB SCH ×3 (06:23→13:44)
[2022-05-31 09:00] VITALS: BP 146/77
[2022-05-31] MEDS: cefTRIAXone 1GM/50ML D5W 50 ML IV SCH (09:43)
[2022-05-31] MEDS: CLOPIDOGREL BISULFATE 75 MG TAB PO SCH (09:44)
[2022-05-31] MEDS: amLODIPine BESYLATE 5 MG TAB PO SCH (09:44)
[2022-05-31] MEDS: METOPROLOL TARTRATE 50 MG TAB PO SCH (09:44)
[2022-05-31] MEDS: ASPirin 81 mg TAB PO SCH (09:44)
[2022-05-31 12:23] VITALS: BP 136/74
[2022-05-31 15:36] VITALS: BP 136/74
== END 2022-05-31 15:28 | disposition home health service (06) | DRG 189 ==
LOC: ER 10:40 → TELE 17:52 → TELE-WESTW 05-30 01:12
PROVIDERS: ADMIT Internal Medicine; ATTEND Internal Medicine
DX: J96.21 Acute and chronic respiratory failure with hypoxia (principal); J18.9 Pneumonia, unspecified organism; I50.33 Acute on chronic diastolic (congestive) heart failure; J44.0 Chronic obstructive pulmonary disease with (acute) lower respiratory infection; J98.11 Atelectasis; I11.0 Hypertensive heart disease with heart failure; E66.9 Obesity, unspecified; R79.89 Other specified abnormal findings of blood chemistry; E03.9 Hypothyroidism, unspecified; E78.5 Hyperlipidemia, unspecified; I25.10 Atherosclerotic heart disease of native coronary artery without angina pectoris; N40.0 Benign prostatic hyperplasia without lower urinary tract symptoms; Z87.01 Personal history of pneumonia (recurrent); Z83.3 Family history of diabetes mellitus; Z95.5 Presence of coronary angioplasty implant and graft; Z20.822 Contact with and (suspected) exposure to COVID-19
CPT/HCPCS: 36415; 71045; 71275; 80053; 83605; 83735; 83880; 84484; 85025; 85379; 87040; 87081; 87426; 93306; 93970; 94640; 96374; 99291; G0378; J0696; J3490

== ENCOUNTER 2023-03-17 08:19 | Emergency (ER) | payer BC ==
[~2023-03-17] VITALS: Ht 172.7 cm; Wt 101.4 kg
[~2023-03-17 08:19] MED LIST changes: +ALBU0.084 NEB; -AMLO-489 PO; +AMLO1TAB22 PO; +DOXY-448 PO; +IPR002IS NEB; -LEVO500T31 PO; +LOSA25TA15 PO; -LOSA25TA38 PO; +PRED20TA2 PO
[2023-03-17 09:07] LABS: Basophils # (auto) 0 10 ^3/uL (0-0.2); Basophils % (auto) 0.4 % (0.0-2.0); Eosinophils # (auto) 0.1 10 ^3/uL (0-0.8); Eosinophils % (auto) 0.8 % (0.0-7.0); Hematocrit 44.9 % (41.0-53.0); Hemoglobin 15.1 g/dL (13.5-17.5); Lymphocytes # (auto) 1.6 10 ^3/uL (0.4-5.4); Lymphocytes % (auto) 11.5 % (10.0-50.0); Mean Corpuscular Hemoglobin 29.1 pg (28.0-32.0); Mean Corpuscular Hgb Conc. 33.5 g/dL (32.0-36.0); Mean Corpuscular Volume 86.9 fL (80.0-100.0); Monocytes # (auto) 1.1 10 ^3/uL (0-1.3); Monocytes % (auto) 7.8 % (0.0-12.0); Neutrophils # (auto) 11.2 10 ^3/uL (1.6-8.6); Neutrophils % (auto) 79.5 % (37.0-80.0); Red Blood Cells 5.17 10^6/uL (4.5-5.90); Red Cell Distribution Width 14.3 % (11.8-14.3); White Blood Cell 14.1 10^3/uL (4.4-10.8)
[2023-03-17 09:27] LABS: INR 1.04 (0.9-1.15); Partial Thromboplastin Time 29.3 SEC (24.5-34.5); Prothrombin Time 10.9 sec (9.3-11.8)
[2023-03-17 09:29] LABS: Alanine Aminotransferase 24 U/L (7-40); Alkaline Phosphatase 81 U/L (46-116); Chloride 100 mmol/L (98-107); Glucose 108 mg/dL (74-106); Potassium 4.8 mmol/L (3.5-5.1); Sodium 134 mmol/L (136-145)
[2023-03-17 09:30] LABS: Albumin 4.2 g/dL (3.2-4.8); Aspartate Aminotransferase 14 U/L (13-40); BUN/Creatinine Ratio 33.8 (10.0-20.0); Bilirubin, Total 0.9 mg/dL (0.2-1.0); Blood Urea Nitrogen 27 mg/dL (9-23); Total Protein 6.8 g/dL (5.7-8.2)
[2023-03-17 09:34] LABS: Calcium 9.1 mg/dL (8.5-10.1)
[2023-03-17 09:39] LABS: Urine Bacteria MANY /hpf (None Seen); Urine Blood 3+ /uL (Negative); Urine Clarity HAZY (Clear); Urine Color PINK (Yellow); Urine Protein, UAD 1+ (Negative); Urine Specific Gravity 1.006 (1.001-1.035); Urine Urobilinogen Normal (Negative); Urine WBC 63 /hpf (0 - 3)
[2023-03-17] MEDS ORDERED: cefTRIAXone 1GM/50ML D5W 50 ML IV ONE (10:00)
[2023-03-17] MEDS ORDERED: BACDST PO (16:59)
[2023-03-17] MEDS ORDERED: TAMS-35 PO (16:59)
[2023-03-17 17:46] VITALS: BP 168/82; PULSE 84; RESP 16; TEMP 98.3; O2SAT 95
== END 2023-03-17 17:50 | disposition home or self-care (01) ==
LOC: ER 08:19
DX: N39.0 Urinary tract infection, site not specified (principal); E78.5 Hyperlipidemia, unspecified; I10 Essential (primary) hypertension; I25.2 Old myocardial infarction; Z90.49 Acquired absence of other specified parts of digestive tract
CPT/HCPCS: 36415; 74176; 80053; 81001; 84484; 85025; 85610; 85730; 87086; 87088; 87186; 96365; 99285; J0696